=== PATIENT | male | born 1975 | race American Indian/Alaskan Native ===

== ENCOUNTER 2019-09-09 05:22 | Emergency (ER) | payer OTHER ==
[2019-09-09 05:38] VITALS: BP 140/88
--- NOTE | 2019-09-09 06:24 | XRay Report ---
LEFT KNEE 3 VIEWS INDICATION / CLINICAL INFORMATION: Left knee pain and swelling. COMPARISON: None available. FINDINGS: BONES and JOINT(S): No acute fracture or subluxation. No significant arthritis. SOFT TISSUES: Mild edema is noted along the knee. ADDITIONAL FINDINGS: None. IMPRESSION: Mild left knee edema without an acute osseous abnormality. Signer Name: Simeon Butts MD Signed: 09/09/2019 6:20 AM Workstation Name: [id number]
[2019-09-09] MEDS ORDERED: CYCLOBENZAPRINE 10 MG TAB PO ONE (07:58)
[2019-09-09] MEDS ORDERED: KETOROLAC 30 MG/1 ML INJ IM ONE (07:58)
--- NOTE | 2019-09-09 08:04 | Emergency Department Report ---
ED General Adult HPI - General Chief complaint: Extremity Injury, Lower Stated complaint: LEFT KNEE PAIN Time Seen by Provider: 09/09/19 07:46 Source: patient Mode of arrival: Ambulatory Limitations: No Limitations - History of Present Illness Initial comments: 43-year-old male presents to ED with pain for the past 2 weeks. Patient states pain is an intermittent throbbing aching worse with standing and walking. Patient states that the past couple of days it's become somewhat swollen and causing him some pain. Patient states that he does a lot of walking and standing on his job. Patient denies any injury trauma or falls to the knee. He denies inability to walk, loss of sensation, any other symptoms - Related Data Previous Rx's Medication Instructions Recorded Last Taken Type Cyclobenzaprine [Flexeril] 10 mg PO QHS PRN #20 tablet 09/09/19 Unknown Rx Ibuprofen [Motrin 800 MG tab] 800 mg PO Q8HR PRN #30 tablet 09/09/19 Unknown Rx Allergies Allergy/AdvReac Type Severity Reaction Status Date / Time No Known Allergies Allergy Unverified 09/09/19 05:38 ED Review of Systems ROS: Stated complaint: LEFT KNEE PAIN Other details as noted in HPI Comment: All other systems reviewed and negative ED Past Medical Hx - Past Medical History Previous Medical History?: No - Surgical History Past Surgical History?: No - Social History Smoking Status: Former Smoker Substance Use Type: Alcohol - Medications Home Medications: Home Medications Medication Instructions Recorded Confirmed Last Taken Type Cyclobenzaprine [Flexeril] 10 mg PO QHS PRN #20 tablet 09/09/19 Unknown Rx Ibuprofen [Motrin 800 MG tab] 800 mg PO Q8HR PRN #30 tablet 09/09/19 Unknown Rx ED Physical Exam - General Limitations: No Limitations General appearance: alert, in no apparent distress - Head Head exam: Present: atraumatic, normocephalic - Eye Eye exam: Present: normal appearance - ENT ENT exam: Present: mucous membranes moist - Neck Neck exam: Present: normal inspection - Respiratory Respiratory exam: Present: normal lung sounds bilaterally. Absent: respiratory distress - Cardiovascular Cardiovascular Exam: Present: regular rate, normal rhythm. Absent: systolic murmur, diastolic murmur, rubs, gallop - GI/Abdominal GI/Abdominal exam: Present: soft, normal bowel sounds - Rectal Rectal exam: Present: deferred - Extremities Exam Extremities exam: Present: normal inspection, full ROM (no erythema, no deformity, no joint swelling noted.), tenderness (mild tenderness to palpation of the anterior knee), other (ambulatory without any problems). Absent: pedal edema, joint swelling, calf tenderness - Back Exam Back exam: Present: normal inspection - Neurological Exam Neurological exam: Present: alert, oriented X3, normal gait, reflexes normal. Absent: abnormal gait, motor sensory deficit - Psychiatric Psychiatric exam: Present: normal affect, normal mood - Skin Skin exam: Present: warm, dry, intact, normal color. Absent: rash ED Course Vital Signs 09/09/19 05:26 Temperature 97.7 F Pulse Rate 80 Respiratory 18 Rate Blood Pressure 140/88 O2 Sat by Pulse 96 Oximetry ED Medical Decision Making - Radiology Data Radiology results: report reviewed, image reviewed Fluoro Time In Minutes: LEFT KNEE 3 VIEWS INDICATION / CLINICAL INFORMATION: Left knee pain and swelling. COMPARISON: None available. FINDINGS: BONES and JOINT(S): No acute fracture or subluxation. No significant arthritis. SOFT TISSUES: Mild edema is noted along the knee. ADDITIONAL FINDINGS: None. IMPRESSION: Mild left knee edema without an acute osseous abnormality. Signer Name: Simeon Butts MD Signed: 09/09/2019 6:20 AM Workstation Name: [id number] Transcribed By: [place] Dictated By: Simeon Butts MD Electronically Authenticated By: Simeon Butts MD Signed Date/Time: 09/09/19 0620 - Medical Decision Making 43-year-old male presents to ED with left knee pain secondary to mild inflammation ED course: Patient received Toradol and Flexeril in ED. Vital signs are normal patient is in no acute distress Discussed with patient follow-up with primary care physician. I also discussed the patient to follow-up with an orthopedic doctor, referrals given Discussed the patient and take medications as prescribed. Patient has no neurological deficit. Patient is alert and oriented 3 and understands all instructions given. Discussed drowsiness effect of Flexeril makes her drowsy and not to operate machinery while taking flexeril Critical care attestation.: If time is entered above; I have spent that time in minutes in the direct care of this critically ill patient, excluding procedure time. ED Disposition Clinical Impression: Knee pain, left Disposition: [id number] TO HOME OR SELFCARE Is pt being admited?: No Does the pt Need Aspirin: No Condition: Stable Instructions: Arthralgia (ED) Additional Instructions: Make sure to follow up with the primary care physician as discussed. Take all your medications as you've been prescribed. If you have any worsening symptoms or develop new symptoms please return to ED immediately. Referrals: PAU SNELL MD [Primary Care Provider] - 3-5 Days [facility] [Provider Group] - 3-5 Days Forms: Work/School Release Form(ED) Time of Disposition: 08:07
== END 2019-09-09 08:31 | disposition home or self-care (01) ==
LOC: ED 05:22
DX: M25.562 Pain in left knee (principal); Z87.891 Personal history of nicotine dependence; Z79.1 Long term (current) use of non-steroidal anti-inflammatories (NSAID); Z79.899 Other long term (current) drug therapy
CPT/HCPCS: 73562; 96372; 99283; J1885